=== PATIENT | male | born 1950 | race Caucasian/White ===

== ENCOUNTER 2021-11-10 14:38 | Inpatient (IN) ==
[2021-11-10] MEDS ORDERED: SODIUM CHLORIDE 0.9% 500 ML IV SCH (15:00)
[2021-11-10] MEDS ORDERED: SODIUM CHLORIDE 0.9% 250 ML IV PRN ×2 (15:00→21:54)
--- NOTE | 2021-11-10 15:07 | Emergency Department Note ---
History of Present Illness General Chief complaint: Weakness Stated complaint: REQUESTING TESTING, BLOOD TESTING Time Seen by Provider: 11/10/21 14:49 Source: patient History of Present Illness Provider complaint: Generalized weakness Onset (ago): week(s) Location: head Pain Consistency: + constant Quality: + other (Generalized weakness) Exacerbated By: + other (Activity) Associated symptoms: + nausea/vomiting, + shortness of breath and + weakness; no chest pain, no cough, no fever/chills or no headaches This is a 71-year-old male sent over from Dr. Sharpe's office for generalized weakness for the past 2 weeks. He states that he has had no energy for the past weeks. He gets short of breath when he performs any activity. He has not passed out but his weakness is worse when he gets up. He had blood work today at Dr. Sharpe's office which showed a hemoglobin of 7.8 down from 11.7 on October 29. His platelet count did come down to 50. He is currently receiving immunotherapy. His absolute neutrophil count came down to 1.92. His creatinine and bilirubin have also elevated slightly. He does state that he has been noticing tea colored urine. His thought his skin was yellow but he did not think so. He denies any fever, cough or cold symptoms, chest pain, abdominal pain, diarrhea or black or bloody stools. He does state that he has had nausea but no vomiting. He is urinating normally without hematuria. Home Medications Medication Instructions Recorded Confirmed Type empagliflozin 10 mg tablet 10 mg PO DAILY 11/10/21 11/10/21 History (Jardiance) finasteride 5 mg tablet 5 mg PO DAILY 11/10/21 11/10/21 History metformin 500 mg tablet 500 mg PO BID 11/10/21 11/10/21 History metoprolol succinate 50 mg 50 mg PO DAILY 11/10/21 11/10/21 History tablet,extended release 24 hr nivolumab 100 mg/10 mL intravenous 0 mg IV MONTHLY 11/10/21 11/10/21 History solution (Opdivo) rosuvastatin 5 mg tablet 5 mg PO DAILY 11/10/21 11/10/21 History sacubitril 97 mg-valsartan 103 mg 0.5 tab PO BID 11/10/21 11/10/21 History tablet (Entresto) spironolactone 25 mg tablet 25 mg PO DAILY 11/10/21 11/10/21 History Allergies Allergy/AdvReac Type Severity Reaction Status Date / Time No Known Allergies Allergy Verified 11/10/21 15:42 Past Med/Surg History Medical History DM type 2 (diabetes mellitus, type 2) Mantle cell lymphoma Melanoma Nonischemic cardiomyopathy Surgical History History of appendectomy History of resection of liver History of splenectomy S/P TURP Family History Brother Diabetes Father Diabetes Social History Smoking Status: Never smoker Hx Alcohol Use: No Preferred Language: Sinhala Feels Safe at Home: Yes Review of Systems See HPI for pertinent positives & negatives. and A total of 10 systems reviewed and were otherwise negative Physical Exam Vital Signs Vital Signs - 24 hr 11/10/21 14:40 11/10/21 14:49 11/10/21 15:45 Temperature 36.7 C Temperature Source Temporal Artery Scan Pulse Rate 87 Pulse Rate [Apical] Pulse Rhythm Pulse Rhythm [Apical] Pulse Strength Pulse Strength [Apical] Respiratory Rate 16 Respiratory Effort / Characteristics Respiratory Depth Respiratory Pattern Blood Pressure 90/52 L Blood Pressure [Left Arm] Blood Pressure Mean 64 Blood Pressure Mean [Left Arm] Blood Pressure Position Sitting Blood Pressure Position [Left Arm] Pulse Oximetry 98 Oxygen Delivery Method Room Air Room Air Sepsis Recent Fever Within 48 Hours No Sepsis New/Unexplained Change in Mental Status N/A Sepsis Action Taken by Nursing No Action Required 11/10/21 16:39 11/10/21 17:55 11/10/21 18:00 Temperature 36.9 C Temperature Source Oral Pulse Rate 70 Pulse Rate [Apical] 65 65 Pulse Rhythm Regular Pulse Rhythm [Apical] Regular Regular Pulse Strength Normal Pulse Strength [Apical] Normal Normal Respiratory Rate 18 20 18 Respiratory Effort / Characteristics Non-Labored Non-Labored Respiratory Depth Normal Normal Respiratory Pattern Regular Regular Blood Pressure 99/42 L Blood Pressure [Left Arm] 105/49 L Blood Pressure Mean 61 Blood Pressure Mean [Left Arm] 67 Blood Pressure Position Lying Blood Pressure Position [Left Arm] Lying Pulse Oximetry 99 98 99 Oxygen Delivery Method Room Air Room Air Sepsis Recent Fever Within 48 Hours Sepsis New/Unexplained Change in Mental Status Sepsis Action Taken by Nursing 11/10/21 18:12 11/10/21 18:27 11/10/21 18:55 Temperature 36.8 C 37.0 C Temperature Source Oral Oral Pulse Rate 67 65 64 Pulse Rate [Apical] Pulse Rhythm Regular Pulse Rhythm [Apical] Pulse Strength Normal Pulse Strength [Apical] Respiratory Rate 20 18 18 Respiratory Effort / Characteristics Respiratory Depth Respiratory Pattern Blood Pressure 97/56 L 89/51 L 91/49 L Blood Pressure [Left Arm] Blood Pressure Mean 69 63 63 Blood Pressure Mean [Left Arm] Blood Pressure Position Lying Lying Blood Pressure Position [Left Arm] Pulse Oximetry 95 99 99 Oxygen Delivery Method Sepsis Recent Fever Within 48 Hours Sepsis New/Unexplained Change in Mental Status Sepsis Action Taken by Nursing 11/10/21 18:56 11/10/21 18:57 Temperature 37.0 C Temperature Source Oral Pulse Rate 67 Pulse Rate [Apical] Pulse Rhythm Pulse Rhythm [Apical] Pulse Strength Pulse Strength [Apical] Respiratory Rate Respiratory Effort / Characteristics Respiratory Depth Respiratory Pattern Blood Pressure Blood Pressure [Left Arm] 91/49 L Blood Pressure Mean Blood Pressure Mean [Left Arm] 63 Blood Pressure Position Blood Pressure Position [Left Arm] Lying Pulse Oximetry 99 Oxygen Delivery Method Sepsis Recent Fever Within 48 Hours Sepsis New/Unexplained Change in Mental Status Sepsis Action Taken by Nursing Constitutional: Vital signs reviewed. Hypotensive. Eyes: Pupils are equal round reactive to light. Conjunctiva are noninjected. ENT: Pharynx is clear without erythema or exudate. Mucous membranes are moist. Neck supple without meningeal signs. Respiratory: Clear to auscultation bilaterally. Breath sounds are equal bilaterally. Cardiovascular: Regular rate and rhythm. No rubs or gallops. GI: Soft, nondistended and nontender. Bowel sounds are present. Musculoskeletal: No peripheral edema. No lower extremity tenderness. Integumentary: No cyanosis. or jaundice. Neurological: The patient is awake and alert. No focal deficits. Psychiatric: Normal affect. Not anxious appearing. Course Administered Medications Discontinued Medications Sodium Chloride (Nss) 500 mls @ 999 mls/hr IV .Q31M SHAKEEL Stop: 11/10/21 15:30 Last Infusion: 11/10/21 16:40 Dose: 0 mls/hr Documented by: [id number] Admin: 11/10/21 16:09 Dose: 999 mls/hr Documented by: [id number] Critical Care Time Critical Care Time: Yes Total Critical Care Time: 35 I have personally spent approximately 35 minutes of critical care time in the direct management of this patient. This includes bedside care, interpretation of diagnostic studies, and testing, discussion with consultants, patient, and family members, and other required patient management activities. These minutes are in excess of all separately billable procedures. Medical Decision Making Differential Diagnosis Symptomatic anemia, chemotherapeutic side effect, hyperbilirubinemia, hypovolemia, metabolic derangement Medical Records Attestation: I reviewed the patient's medical records. I did perform a limited focused review of portions of the patient's old chart on the electronic medical record. The patient has had no recent pertinent visits to this hospital. Home Medications Current Medication List: was personally reviewed by me Laboratory Data Attestation: I reviewed the patient's lab results. Result diagrams: 11/10/21 15:19 11/10/21 15:19 Lab Results 11/10/21 11/10/21 11/10/21 Range/Units 15:19 15:19 15:19 WBC 3.92 L (4.8-10.8) K/uL RBC 2.29 L (4.7-6.1) M/uL Hgb 7.7 L (14.0-18.0) g/dL Hct 23.0 L (42-52) % MCV 100.4 H (80-100) fL MCH 33.6 (25-34) pg MCHC 33.5 (32-36) g/dL RDW Std Deviation 59.3 H (36.4-46.3) fL RDW Coeff of Melvin 16.3 H (11.5-14.5) % Plt Count 57 L (130-400) K/uL MPV 10.5 H (7.4-10.4) fL Absolute Nucleated RBC 0.02 H (0-0) K/uL Nucleated RBC % (auto) 0.6 % Neutrophils % (Manual) 72.8 % Lymphocytes % (Manual) 19.4 % Monocytes % (Manual) 3.9 % Eosinophils % (Manual) 1.0 % Basophils % (Manual) 1.9 % Metamyelocytes % (Man) 1.0 % Neutrophils # (Manual) 2.85 (1.4-6.5) K/uL Total Absolute Neuts 2.85 (1.4-6.5) K/uL Lymphocytes # (Manual) 0.76 L (1.2-3.4) K/uL Total Abs Lymphocytes 0.76 L (1.2-3.4) K/uL Monocytes # (Manual) 0.15 (0.11-0.59) K/uL Eosinophils # (Manual) 0.04 (0-0.5) K/uL Basophils # (Manual) 0.07 (0-0.2) K/uL Metamyelocytes # (Man) 0.04 H (0-0) K/uL Macrocytosis Present Sodium 139 (136-145) mmol/L Potassium 4.4 (3.5-5.1) mmol/L Chloride 109 H (98-107) mmol/L Carbon Dioxide 20 L (21-32) mmol/L Anion Gap 10 (3-11) BUN 39 H (6-23) mg/dl Creatinine 1.20 (0.6-1.4) mg/dl Est Cr Clr Drug Dosing 61.1 ml/min Est GFR ( Amer) 69.6 ml/min Est GFR (Non-Af Amer) 60.1 ml/min BUN/Creatinine Ratio 32.5 H (10-20) Glucose 140 H (70-99(Fasting)) mg/dl Calcium 8.5 (8.5-10.1) mg/dl Total Bilirubin 1.8 H (0.2-1.0) mg/dl AST 41 H (13-39) U/L ALT 11 (7-52) U/L Alkaline Phosphatase 57 (34-104) U/L Troponin I High Sens 7.3 (0-20) pg/ml Total Protein 5.7 L (6.0-8.3) gm/dl Albumin 3.9 (3.4-5.0) gm/dl Globulin 1.8 L (2.5-4.0) gm/dl Albumin/Globulin Ratio 2.2 H (0.9-2) SARS-CoV-2, RNA, NAAT (NEGATIVE) Blood Type Blood Type Recheck Antibody Screen Crossmatch 11/10/21 11/10/21 11/10/21 Range/Units 15:40 15:52 16:21 WBC (4.8-10.8) K/uL RBC (4.7-6.1) M/uL Hgb (14.0-18.0) g/dL Hct (42-52) % MCV (80-100) fL MCH (25-34) pg MCHC (32-36) g/dL RDW Std Deviation (36.4-46.3) fL RDW Coeff of Melvin (11.5-14.5) % Plt Count (130-400) K/uL MPV (7.4-10.4) fL Absolute Nucleated RBC (0-0) K/uL Nucleated RBC % (auto) % Neutrophils % (Manual) % Lymphocytes % (Manual) % Monocytes % (Manual) % Eosinophils % (Manual) % Basophils % (Manual) % Metamyelocytes % (Man) % Neutrophils # (Manual) (1.4-6.5) K/uL Total Absolute Neuts (1.4-6.5) K/uL Lymphocytes # (Manual) (1.2-3.4) K/uL Total Abs Lymphocytes (1.2-3.4) K/uL Monocytes # (Manual) (0.11-0.59) K/uL Eosinophils # (Manual) (0-0.5) K/uL Basophils # (Manual) (0-0.2) K/uL Metamyelocytes # (Man) (0-0) K/uL Macrocytosis Sodium (136-145) mmol/L Potassium (3.5-5.1) mmol/L Chloride (98-107) mmol/L Carbon Dioxide (21-32) mmol/L Anion Gap (3-11) BUN (6-23) mg/dl Creatinine (0.6-1.4) mg/dl Est Cr Clr Drug Dosing ml/min Est GFR ( Amer) ml/min Est GFR (Non-Af Amer) ml/min BUN/Creatinine Ratio (10-20) Glucose (70-99(Fasting)) mg/dl Calcium (8.5-10.1) mg/dl Total Bilirubin (0.2-1.0) mg/dl AST (13-39) U/L ALT (7-52) U/L Alkaline Phosphatase (34-104) U/L Troponin I High Sens (0-20) pg/ml Total Protein (6.0-8.3) gm/dl Albumin (3.4-5.0) gm/dl Globulin (2.5-4.0) gm/dl Albumin/Globulin Ratio (0.9-2) SARS-CoV-2, RNA, NAAT NEGATIVE (NEGATIVE) Blood Type O Positive Blood Type Recheck O Positive Antibody Screen NEGATIVE Crossmatch See Detail Imaging Data Radiologist's Impression: Chest X-Ray 11/10/21 15:00 XR chest 1V portable HISTORY: 71 years-old Male weakness acute weakness COMPARISON: None TECHNIQUE: Portable AP view of the chest FINDINGS: The cardiomediastinal and hilar silhouettes are within normal limits. Surgical clip projects over the right lung apex. No pneumothorax, pleural effusion, airspace consolidation or overt pulmonary edema. Degenerative changes of the shoulders and spine. IMPRESSION: No acute process. ACT 112: Negative or not required by law. The above report was generated using voice recognition software. It may contain grammatical, syntax or spelling errors. Electronically signed by: Chandler Corrales M.D. 11/10/2021 4:00 PM ECG Data Attestation: I personally reviewed and interpreted this ECG as follows: Indication: + weakness Rate (beats per minute): 101 Rhythm: + sinus tachycardia ECG ST segments: no ST elevation ECG Findings: + Other (Low voltage QRS) Comparison ECG Date: no prior available MDM Narrative I did evaluate the patient as noted above. The patient is presenting with generalized weakness with hypotension and significant anemia. He is being treated for mantle cell lymphoma. IV access was established. I did treat him with normal saline IV. I did obtain informed consent for transfusion. I did place an order for transfusion of 2 units of packed RBCs irradiated and leukocyte depleted. I did place an order for continuous cardiac monitoring. The monitor showed Sinus tachycardia at a rate of 101 bpm. I did order and personally review the patient's 12-lead EKG as described above. He has no acute ischemic changes. I did order and personally reviewed the images of the patient's chest x-ray as described above. There is no evidence of pneumonia. I did order and review the patient's blood work as noted in the electronic medical record. CBC demonstrates pancytopenia with a hemoglobin of 7.7. CMP demonstr ates a total bili of 1.8 with an L AST of 41. High-sensitivity troponin is negative. Electrolytes show a CO2 of 20 and a chloride of 109. BUN and creatinine at 39 and 1.2. On reassessment his blood pressure is improved with these fluid bolus. He was started on his transfusion here in the emergency department. I did discuss the test results with him. I did discuss the case with the hospitalist and case assembler. Impression & Plan Acute hypotension, Mantle cell lymphoma, Symptomatic anemia, Elevated bilirubin, Pancytopenia Discharge Plan Visit Data Chief Complaint: Weakness Stated Complaint: REQUESTING TESTING, BLOOD TESTING ED Provider: Yasmani Blount Discharge Problem: Acute hypotension, Mantle cell lymphoma, Symptomatic anemia, Elevated bili bryan, Pancytopenia Patient Disposition: Being Evaluated by Hospitalist Forms Stand Alone Forms: My [facility] Prescriptions Prescriptions: No Action metformin 500 mg tablet 500 mg PO BID RF: 0 metoprolol succinate 50 mg tablet extended release 24 hr 50 mg PO DAILY RF: 0 spironolactone 25 mg tablet 25 mg PO DAILY RF: 0 finasteride 5 mg tablet 5 mg PO DAILY RF: 0 rosuvastatin 5 mg tablet 5 mg PO DAILY RF: 0 Opdivo 100 mg/10 mL Solution 0 mg IV MONTHLY RF: 0 Entresto 97-103 mg Tablet 0.5 tab PO BID RF: 0 Jardiance 10 mg tablet 10 mg PO DAILY RF: 0 Referrals Referrals: PCP,NO [Physician] -
--- NOTE | 2021-11-10 16:02 | XRay Report ---
XR chest 1V portable HISTORY: 71 years-old Male weakness acute weakness COMPARISON: None TECHNIQUE: Portable AP view of the chest FINDINGS: The cardiomediastinal and hilar silhouettes are within normal limits. Surgical clip projects over the right lung apex. No pneumothorax, pleural effusion, airspace consolidation or overt pulmonary edema. Degenerative changes of the shoulders and spine. IMPRESSION: No acute process. ACT 112: Negative or not required by law. The above report was generated using voice recognition software. It may contain grammatical, syntax o r spelling errors. Electronically signed by: Chandler Corrales M.D. 11/10/2021 4:00 PM
[2021-11-10 16:15] LABS: Hemoglobin 7.7 g/dL (14.0-18.0); Mean Corpuscular Hemoglobin 33.6 pg (25-34); Mean Corpuscular Hgb Conc 33.5 g/dL (32-36); Mean Corpuscular Volume 100.4 fL (80-100); Mean Platelet Volume 10.5 fL (7.4-10.4); Nucleated RBC # (auto) 0.02 K/uL (0-0); Nucleated RBC % (auto) 0.6 %; Platelet Count 57 K/uL (130-400); RDW Coefficient of Variation 16.3 % (11.5-14.5); RDW Standard Deviation 59.3 fL (36.4-46.3); Red Blood Count 2.29 M/uL (4.7-6.1); White Blood Count 3.92 K/uL (4.8-10.8)
[2021-11-10 16:18] LABS: ALC (manual) 0.76 K/uL (1.2-3.4); ANC (manual) 2.85 K/uL (1.4-6.5); Basophils # (manual) 0.07 K/uL (0-0.2); Basophils % (manual) 1.9 %; Eosinophils # (manual) 0.04 K/uL (0-0.5); Lymphocytes # (manual) 0.76 K/uL (1.2-3.4); Lymphocytes % (manual) 19.4 %; Macrocytosis Present; Metamyelocytes # (manual) 0.04 K/uL (0-0); Monocytes # (manual) 0.15 K/uL (0.11-0.59); Monocytes % (manual) 3.9 %; Neutrophils # (manual) 2.85 K/uL (1.4-6.5); Neutrophils % (manual) 72.8 %
[2021-11-10 16:22] LABS: Albumin Globulin Ratio 2.2 (0.9-2); Albumin Level 3.9 gm/dl (3.4-5.0); BUN Creatinine Ratio 32.5 (10-20); Bilirubin,Total 1.8 mg/dl (0.2-1.0); Calcium 8.5 mg/dl (8.5-10.1); Creatinine Clr Calc Pharmacy 61.1 ml/min; Est GFR (African American) 69.6 ml/min; Est GFR (Non-African American) 60.1 ml/min; Globulin 1.8 gm/dl (2.5-4.0); Potassium 4.4 mmol/L (3.5-5.1); Total Protein 5.7 gm/dl (6.0-8.3)
--- NOTE | 2021-11-10 20:09 | History & Physical Report ---
Date of Service November 10, 2021 Assessment & Plan (1) Symptomatic anemia: (2) Pancytopenia: (3) Melanoma: (4) Mantle cell lymphoma: Plan: Admit to [facility] Patient presenting by referral of oncology office for evaluation of fatigue, lightheadedness, anemia History of recurrent malignant melanoma and mantle cell lymphoma, on Opdivo every 4 weeks (last treatment 10/29) and acalabrutinib (has been on hold since 10/29) As an outpatient, Hgb has been trending down, 14.4 on 10/01 --> 11.7 on 10/29 --> 7.8 on 11/10. Platelets trending down as well, 93K --> 65K --> 50K Noted previously on allopurinol for tumor lysis syndrome prevention, this was recently discontinued by oncology CBC in ED shows pancytopenia-WBC 3.9K, Hgb 7.7, platelets of 57K, ANC 760. No fever reported. Borderline hypotension noted Transfuse 2 unit PRBC, follow CBC (5) Elevated bilirubin: Plan: T bili 1.8 No abdominal complaints reported Follow LFTs Outpatient follow-up (6) Nonischemic cardiomyopathy: Plan: Chemotherapy-induced EF 37% Due to borderline hypotension -- hold Entresto, metoprolol, spironolactone for now, resume as able On Jardiance for heart failure associated risk reduction Monitor volume status closely with PRBC transfusion, may need IV Lasix however hesitant to give at this time due to hypotension (7) DM type 2 (diabetes mellitus, type 2): Plan: Hgb A1c 6.1 05/2021 Hold metformin, utilize NovoLog per protocol while hospitalized (8) DVT prophylaxis: Plan: SCDs History of Present Illness Chief Complaint: Fatigue, lightheadedness, referred by oncologist Primary Care Provider: Ike Ash PA-C 71-year-old male with PMH recurrent malignant melanoma and mantle cell lymphoma s/p previous stem cell transplant, surgical resection, chemotherapy; chemotherapy induced nonischemic cardiomyopathy, DM type II, and other problems listed below who presents the ED for evaluation of lightheadedness, fatigue, and referred by oncologist for anemia. Patient is currently receiving Opdivo every 4 weeks for management of melanoma, previously on PO acalabrutinib (Calquence) for management of lymphoma. Last Opdivo treatment was on 10/29, and Calquence has been on hold since 10/29 as well due to pancytopenia. Patient was seen by cardiology for complaints of low blood pressure and orthostasis. Entresto was reduced by half at that time. Patient reports no improvement in his symptoms. Outpatient labs today showed Hgb 7.8 and platelets 50 K, down from Hgb 14.4 and platelets 93K 1 month ago. Patient denies any other recent illnesses, fevers, chills. No chest pain or shortness of breath. Denies bright red bleeding per rectum or dark tarry stools. No abdominal pain, nausea, vomiting, diarrhea. Denies urinary symptoms. In the ED, labs show Hgb 7.7, BP borderline low at times. Patient was given IVF and typed and crossed for 2 unit PRBC. Allergies Allergy/AdvReac Type Severity Reaction Status Date / Time No Known Allergies Allergy Verified 11/10/21 15:42 Home Medications Medication Instructions Recorded Confirmed Type empagliflozin 10 mg tablet 10 mg PO DAILY 11/10/21 11/10/21 History (Jardiance) finasteride 5 mg tablet 5 mg PO DAILY 11/10/21 11/10/21 History metformin 500 mg tablet 500 mg PO BID 11/10/21 11/10/21 History metoprolol succinate 50 mg 50 mg PO DAILY 11/10/21 11/10/21 History tablet,extended release 24 hr nivolumab 100 mg/10 mL intravenous 0 mg IV MONTHLY 11/10/21 11/10/21 History solution (Opdivo) rosuvastatin 5 mg tablet 5 mg PO DAILY 11/10/21 11/10/21 History sacubitril 97 mg-valsartan 103 mg 0.5 tab PO BID 11/10/21 11/10/21 History tablet (Entresto) spironolactone 25 mg tablet 25 mg PO DAILY 11/10/21 11/10/21 History Past Med/Surg History Medical History DM type 2 (diabetes mellitus, type 2) Mantle cell lymphoma Melanoma Nonischemic cardiomyopathy Surgical History History of appendectomy History of resection of liver History of splenectomy S/P TURP Family History Brother Diabetes Father Diabetes Social History Smoking Status: Never smoker Hx Alcohol Use: No Preferred Language: Uzbek Feels Safe at Home: Yes Review of Systems Review of Systems: ROS per HPI, all other systems reviewed and negative Physical Exam Constitutional: WD/WN, vitals as above Eyes: PERRL, conjunctivae normal, anicteric sclerae ENMT: external ear and nose normal, oropharynx normal Respiratory: normal respiratory effort, lungs clear to auscultation Cardiovascular: Rate/Rhythm: regular rate and regular rhythm Vessels: normal peripheral pulses Extremities: no edema Gastrointestinal (Abdomen): normal bowel sounds, soft, nontender, no hepatosplenomegaly Musculoskeletal: no cyanosis or clubbing, extremities motor strength 5/5 Skin: no rashes, warm and dry + pallor Neurologic: PERRL, EOMI, accommodation nl, no face palsy, no dysarthria Psychiatric: A+Ox3, euthymic affect Results & Data Results & Data ([facility]) Vital Signs (Past 12 Hours) Vital Signs Temp Pulse Pulse Resp BP BP Pulse Ox 11/10/21 18:57 37.0 C 67 99 11/10/21 18:56 91/49 L 11/10/21 18:55 37.0 C 64 18 91/49 L 99 11/10/21 18:27 65 18 89/51 L 99 11/10/21 18:12 36.8 C 67 20 97/56 L 95 11/10/21 18:00 65 18 99 11/10/21 17:55 36.9 C 70 20 99/42 L 98 11/10/21 16:39 65 18 105/49 L 99 11/10/21 14:40 36.7 C 87 16 90/52 L 98 Laboratory Results Short CBC 11/10/21 Range/Units 15:19 WBC 3.92 L (4.8-10.8) K/uL Hgb 7.7 L (14.0-18.0) g/dL Hct 23.0 L (42-52) % Plt Count 57 L (130-400) K/uL BMP 11/10/21 15:19 Sodium 139 Potassium 4.4 Chloride 109 H Carbon Dioxide 20 L BUN 39 H Creatinine 1.20 Glucose 140 H Calcium 8.5 Liver Function 11/10/21 Range/Units 15:19 Total Bilirubin 1.8 H (0.2-1.0) mg/dl AST 41 H (13-39) U/L ALT 11 (7-52) U/L Alkaline Phosphatase 57 (34-104) U/L Albumin 3.9 (3.4-5.0) gm/dl Diagnostic Findings Chest X-Ray 11/10/21 15:00 XR chest 1V portable HISTORY: 71 years-old Male weakness acute weakness COMPARISON: None TECHNIQUE: Portable AP view of the chest FINDINGS: The cardiomediastinal and hilar silhouettes are within normal limits. Surgical clip projects over the right lung apex. No pneumothorax, pleural effusion, airspace consolidation or overt pulmonary edema. Degenerative changes of the shoulders and spine. IMPRESSION: No acute process. ACT 112: Negative or not required by law. The above report was generated using voice recognition software. It may contain grammatical, syntax or spelling errors. Electronically signed by: Chandler Corrales M.D. 11/10/2021 4:00 PM Code Status & VTE Plan Code Status Patient is a DNR as per my discussion with him. VTE Prophylaxis Plan VTE Prophylaxis will be ordered: Yes Supervising Physician Co-Signing Physician Notes Patient seen and examined with Maria De Jesus DHILLON, chart reviewed, case discussed with her and agree with her documentation. In summary, this is a 71 year old male with melanoma and mantle cell lymphoma s/p stem cell transplant, chemo induced NICM, recurrence of malignancies and currently on Opdivo and po calquence last dose of both being 5/5 currently on hold due to pancytopenia presented to the ED today for symptomatic anemia with fatigue, dizziness. His Hb in ED 7.7, down from 14 about a month ago. Plts and WBC also down. His BP is soft and on lower side. His entresto was recently cut down by cardiology. During our encounter, he denied any symptoms. He was receiving PRBC, total of 2 U. Denies any bleeding issues. Will recheck CBC in am along with orthostatic vitals and PT eval. Will repeat echo. Will hold BP meds given low BP- resume as able. If reports SOB, will give 1 dose of iv lasix considering his NICM. Might need midodrine for pressor support if BP remains low or symptomatic. Rest as per the note above.
[2021-11-10] MEDS ORDERED: GLUCAGON FOR INJ 1 MG VIAL SQ PRN (20:33)
[2021-11-10] MEDS ORDERED: GLUCOSE 10 TABS/TUBE PO PRN (20:33)
[2021-11-10] MEDS ORDERED: CARBOHYDRATES FOR HYPOGLYCEMIA PO PRN (20:33)
[2021-11-10] MEDS ORDERED: DEXTROSE 50% 50 ML SYRINGE IV PRN (20:33)
[2021-11-10] MEDS ORDERED: GLUCOSE 40% GEL 15 GM TUBE PO PRN (20:33)
[2021-11-10] MEDS ORDERED: ACETAMINOPHEN 325 MG TAB PO PRN (20:33)
[2021-11-10] MEDS ORDERED: diphenhydrAMINE Capsule 25 MG CAP PO ONE (21:06)
[2021-11-10 21:13] LABS: Appearance Urine Cloudy (Clear); Bacteria Urine Automated Negative (Negative); Bilirubin Urine Negative (Negative); Blood Urine 2+ (Negative); Color Urine Dark Yellow; Epithelial Cell Urine Auto >30 /lpf (0-5); Glucose Urine UA 1+ (Negative); Ketones Urine Negative (Negative); Leukocyte Esterase Urine Negative (Negative); Nitrite Urine Negative (Negative); Protein Urine 2+ (Negative); RBC Urine Automated 0-4 /hpf (0-4); Specific Gravity Urine 1.021 (1.000-1.030); Urobilinogen Urine Negative (Negative)
[2021-11-10] MEDS: INSULIN ASPART PER UNIT SC SCH (21:25)
[2021-11-11 02:30] LABS: Hematocrit (blood only) 25.4 % (42-52); Hemoglobin 8.6 g/dL (14.0-18.0); Mean Corpuscular Hemoglobin 32.5 pg (25-34); Mean Corpuscular Hgb Conc 33.9 g/dL (32-36); Mean Corpuscular Volume 95.8 fL (80-100); Nucleated RBC # (auto) 0.02 K/uL (0-0); Nucleated RBC % (auto) 0.5 %; RDW Coefficient of Variation 18.3 % (11.5-14.5); RDW Standard Deviation 64.2 fL (36.4-46.3); Red Blood Count 2.65 M/uL (4.7-6.1)
[2021-11-11 02:44] LABS: Albumin Level 3.3 gm/dl (3.4-5.0); BUN Creatinine Ratio 34.6 (10-20); Bilirubin Direct 0.3 mg/dl (0-0.2); Bilirubin,Total 1.7 mg/dl (0.2-1.0); Calcium 8.1 mg/dl (8.5-10.1); Creatinine Clr Calc Pharmacy 68.5 ml/min
[2021-11-11 02:55] LABS: Platelet Count 55 K/uL (130-400); Platelet Estimate Decreased (Normal)
[2021-11-11] MEDS ORDERED: PERFLUTREN LIPID MICROSPHERE (DEFINITY) IV ONE (07:24)
[2021-11-11] MEDS: FINASTERIDE 5 MG TAB PO SCH (08:15)
[2021-11-11] MEDS: ROSUVASTATIN CALCIUM 5 MG TAB PO SCH (08:16)
[2021-11-11] MEDS: INSULIN ASPART PER UNIT SC SCH ×4 (08:16→20:27)
[2021-11-11 08:30] LABS: Estimated Average Glucose 111 mg/dl; Hemoglobin A1C 5.5 % (4.5-5.6)
[2021-11-11 14:01] LABS: Reticulocyte % 2.4 % (0.5-2.0)
--- NOTE | 2021-11-11 14:41 | Electrocardiogram Report ---
Test Reason : Blood Pressure : / mmHG Vent. Rate : 101 BPM Atrial Rate : 101 BPM P-R Int : 178 ms QRS Dur : 098 ms QT Int : 340 ms P-R-T Axes : 040 -28 065 degrees QTc Int : 440 ms Sinus tachycardia with marked sinus arrhythmia Low voltage QRS possible Inferior infarct , age undetermined Poor R wave progression, consider anterior FL vs. lead placement vs. LVH Abnormal ECG No previous ECGs available Confirmed by Chidi Donovan ([id number]) on 11/11/2021 2:41:06 PM Referred By: REFERRED SELF Confirmed By:Cole Donovan
--- NOTE | 2021-11-11 16:04 | Hospitalist Progress Note ---
Date of Service November 11, 2021 Assessment & Plan (1) Symptomatic anemia: Plan: (1) Symptomatic anemia: (2) Pancytopenia: (3) Melanoma: (4) Mantle cell lymphoma: Patient presenting 11/10 by referral of oncology office for evaluation of fatigue, lightheadedness, anemia History of recurrent malignant melanoma and mantle cell lymphoma, on Opdivo every 4 weeks (last treatment 10/29) and acalabrutinib (has been on hold since 10/29) As an outpatient, Hgb has been trending down, 14.4 on 10/01 --> 11.7 on 10/29 --> 7.8 on 11/10. Platelets trending down as well, 93K --> 65K --> 50K Noted previously on allopurinol for tumor lysis syndrome prevention, this was recently discontinued by oncology. Admitting CBC with pancytopenia with hemoglobin of 7.7. Status post 2 unit PRBC transfusion 11/10. Outpatient LDH on 11/10 was 1276, 11/11 LDH 1011 and uric acid 6.7 11/11 hemoglobin 8.6, blood smear [on sample before transfusion], reticulocyte, Keeley test and haptoglobin sent. 11/11 discussed with oncology over the phone, appreciate recommendation. Follow-up H&H at 10 PM today and daily. Transfuse for hemoglobin less than 7 or symptomatic anemia. CBC in 5 days upon discharge. (5) Elevated bilirubin: Plan: T bili 1.8 No abdominal complaints reported Follow LFTs, minimally trending down. Outpatient follow-up (6) Nonischemic cardiomyopathy: Plan: Chemotherapy-induced EF 37% Resume entresto and metoprolol; gradually resume spironolactone d/t concern of borderline hypotension Due to borderline hypotension -- hold Entresto, metoprolol, spironolactone for now, resume as able Ortho vitals negative. On Jardiance for heart failure associated risk reduction (7) DM type 2 (diabetes mellitus, type 2): Plan: Hgb A1c 6.1 05/2021. 5.5 this admission. Hold metformin, utilize NovoLog per protocol while hospitalized (8) DVT prophylaxis: Plan: SCDs #. Disposition: If hemoglobin stays stable, likely DC tomorrow after discussion with Dr. Sharpe. Admission and Anticipated Discharge Date Admission Date: November 10, 2021 Subjective Patient seen and examined at bedside as a follow-up of Mantel Cell lymphoma and symptomatic anemia [concern for hemolysis]. Patient was lying in bed, on room air, NAD, no new acute events overnight. Patient reports feeling better and feeling less weak today, patient reports moving around okay. Patient denies any headache/dizziness/chest pain/palpitation/belly pain/blood in the stool or black in stool/other review of symptoms. Patient reports eating okay. Physical Exam Physical Exam: GENERAL: Alert and oriented x3. NAD, on RA. HEENT: + pallor, no icterus. Pupils equal, round and reactive to light. Oral mucosa moist. NECK: No JVD, no neck masses. HEART: S1 and S2 heard. Regular rate and rhythm. No murmur, no gallop. Healed surgical scar on the right chest, lump at the site of prior operation [chronic and stable per patient] RESPIRATORY SYSTEM: Normal AP diameter. No accessory muscle use. No wheezing, no crackles. ABDOMEN: Soft, bowel sounds present, nontender, no distention. CENTRAL NERVOUS SYSTEM: No facial droop. Speech is clear. Obeys simple commands. Moves extremities. EXTREMITIES: No edema, no erythema seen. Results & Data Results & Data ([facility]) Vital Signs (Past 12 Hours) Vital Signs Temp Pulse Resp BP Pulse Ox 11/11/21 15:06 36.8 C 82 18 113/67 100 11/11/21 11:04 36.9 C 94 H 92/54 L 98 11/11/21 07:52 37 C 73 18 113/65 98
[2021-11-11] MEDS: VALSARTAN/SACUBITRIL 103/97MG TAB PO SCH (20:28)
[2021-11-11 23:00] LABS: Hematocrit (blood only) 24.2 % (42-52); Hemoglobin 8.3 g/dL (14.0-18.0)
[2021-11-12 08:26] LABS: Hematocrit (blood only) 24.6 % (42-52); Hemoglobin 8.3 g/dL (14.0-18.0); Mean Corpuscular Hemoglobin 32.3 pg (25-34); Mean Corpuscular Hgb Conc 33.7 g/dL (32-36); Mean Corpuscular Volume 95.7 fL (80-100); RDW Coefficient of Variation 18.9 % (11.5-14.5); RDW Standard Deviation 65.5 fL (36.4-46.3); Red Blood Count 2.57 M/uL (4.7-6.1); White Blood Count 3.91 K/uL (4.8-10.8)
[2021-11-12] MEDS: INSULIN ASPART PER UNIT SC SCH ×2 (08:30→12:24)
[2021-11-12] MEDS: VALSARTAN/SACUBITRIL 103/97MG TAB PO SCH (08:31)
[2021-11-12] MEDS: ROSUVASTATIN CALCIUM 5 MG TAB PO SCH (08:31)
[2021-11-12] MEDS: FINASTERIDE 5 MG TAB PO SCH (08:31)
[2021-11-12 08:41] LABS: Mean Platelet Volume 10.3 fL (7.4-10.4); Platelet Count 50 K/uL (130-400)
[2021-11-12 08:55] LABS: Calcium 8.4 mg/dl (8.5-10.1); Creatinine Clr Calc Pharmacy 78.8 ml/min; Est GFR (African American) 94.7 ml/min; Est GFR (Non-African American) 81.7 ml/min; Potassium 4.1 mmol/L (3.5-5.1)
[2021-11-12] MEDS ORDERED: METOPROLOL SUCC 50MG EXT REL TAB PO SCH (09:00)
[2021-11-12 09:02] LABS: Albumin Globulin Ratio 2.1 (0.9-2); Albumin Level 3.5 gm/dl (3.4-5.0); Globulin 1.7 gm/dl (2.5-4.0); Magnesium 1.4 mg/dl (1.7-2.4); Phosphorus 3.5 mg/dl (2.5-4.9); Total Protein 5.2 gm/dl (6.0-8.3)
[2021-11-12 09:21] LABS: Folate (Folic Acid) 12.23 ng/ml (>5.38)
[2021-11-12 09:30] LABS: Reticulocytes # 0.06 10^6/uL (0.02-0.10)
[2021-11-12] MEDS: MAGNESIUM SULFATE / D5W 1 GM/100 ML BAG IV SCH ×3 (09:36→13:59)
[2021-11-12 11:18] LABS: Ferritin 1483.4 ng/ml (8-388)
[2021-11-12] MEDS ORDERED: FOLIC ACID 1 MG TAB PO SCH (12:45)
--- NOTE | 2021-11-12 15:19 | Discharge Summary ---
Date of Service November 12, 2021 Admission HPI Per Admitting Provider 71-year-old male with PMH recurrent malignant melanoma and mantle cell lymphoma s/p previous stem cell transplant, surgical resection, chemotherapy; chemotherapy induced nonischemic cardiomyopathy, DM type II, and other problems listed below who presents the ED for evaluation of lightheadedness, fatigue, and referred by oncologist for anemia. Patient is currently receiving Opdivo every 4 weeks for management of melanoma, previously on PO acalabrutinib (Calquence) for management of lymphoma. Last Opdivo treatment was on 10/29, and Calquence has been on hold since 10/29 as well due to pancytopenia. Patient was seen by cardiology for complaints of low blood pressure and orthostasis. Entresto was reduced by half at that time. Patient reports no improvement in his symptoms. Outpatient labs today showed Hgb 7.8 and platelets 50 K, down from Hgb 14.4 and platelets 93K 1 month ago. Patient denies any other recent illnesses, fevers, chills. No chest pain or shortness of breath. Denies bright red bleeding per r ectum or dark tarry stools. No abdominal pain, nausea, vomiting, diarrhea. Denies urinary symptoms. In the ED, labs show Hgb 7.7, BP borderline low at times. Patient was given IVF and typed and crossed for 2 unit PRBC. Admission Exam Per Admitting Provider Constitutional: WD/WN, vitals as above Eyes: PERRL, conjunctivae normal, anicteric sclerae ENMT: external ear and nose normal, oropharynx normal Respiratory: normal respiratory effort, lungs clear to auscultation Cardiovascular: Rate/Rhythm: regular rate and regular rhythm Vessels: normal peripheral pulses Extremities: no edema Gastrointestinal (Abdomen): normal bowel sounds, soft, nontender, no hepatosplenomegaly Musculoskeletal: no cyanosis or clubbing, extremities motor strength 5/5 Skin: no rashes, warm and dry + pallor Neurologic: PERRL, EOMI, accommodation nl, no face palsy, no dysarthria Psychiatric: A+Ox3, euthymic affect Principal Diagnosis Symptomatic anemia/complement mediated hemolysis Active diagnosis of mantle cell lymphoma Likely chemotherapy-induced pancytopenia Discharge Exam GENERAL: Alert and oriented x3. NAD, on RA. HEENT: + pallor, no icterus. Pupils equal, round and reactive to light. Oral mucosa moist. NECK: No JVD, no neck masses. HEART: S1 and S2 heard. Regular rate and rhythm. No murmur, no gallop. Healed surgical scar on the right chest, lump at the site of prior operation [chronic and stable per patient] RESPIRATORY SYSTEM: Normal AP diameter. No accessory muscle use. No wheezing, no crackles. ABDOMEN: Soft, bowel sounds present, nontender, no distention. CENTRAL NERVOUS SYSTEM: No facial droop. Speech is clear. Obeys simple commands. Moves extremities. EXTREMITIES: No edema, no erythema seen. Discharge Data Allergies Allergy/AdvReac Type Severity Reaction Status Date / Time No Known Allergies Allergy Verified 11/10/21 15:42 Hospital Course (1) Symptomatic anemia: (1) Symptomatic anemia: (2) likely chemotherapy-induced pancytopenia: (3) Melanoma: (4) Mantle cell lymphoma: Patient presenting 11/10 by referral of oncology office for evaluation of fatigue, lightheadedness, anemia History of recurrent malignant melanoma and mantle cell lymphoma, on Opdivo every 4 weeks (last treatment 10/29) and acalabrutinib (has been on hold since 10/29) As an outpatient, Hgb has been trending down, 14.4 on 10/01 --> 11.7 on 10/29 --> 7.8 on 11/10. Platelets trending down as well, 93K --> 65K --> 50K Concern for likely complement mediated hemolysis. Noted previously on allopurinol for tumor lysis syndrome prevention, this was recently discontinued by oncology. Admitting CBC with pancytopenia with hemoglobin of 7.7. Status post 2 unit PRBC transfusion 11/10. Outpatient LDH on 11/10 was 1276, 11/11 LDH 1011 and uric acid 6.7 11/11 hemoglobin 8.6, and 11/12 hemoglobin 8.3. Peripheral blood smear suggestive of nonspecific pancytopenia. Reticulocyte's count minimally elevated, haptoglobin decreased. Direct Keeley test positive with complement weakly positive. Cold agglutinin test sent. 11/11 discussed with oncology over the phone, appreciate recommendation. 11/12 discussed with oncology again, can discharge with follow-up with oncology tomorrow and CBC tomorrow. Patient made aware. Folic acid started 11/12, hold medications for lymphoma until evaluated by oncology. (5) Elevated bilirubin: Plan: T bili 1.8 No abdominal complaints reported Follow LFTs, minimally trending down. Outpatient follow-up with PCP, expect to improve with improvement in hemolysis. (6) Nonischemic cardiomyopathy: Plan: Chemotherapy-induced EF 37% Resume entresto and metoprolol; gradually resume spironolactone d/t concern of borderline hypotension Due to borderline hypotension -- hold Entresto, metoprolol, spironolactone for now, resume as able Ortho vitals negative. On Jardiance for heart failure associated risk reduction (7) DM type 2 (diabetes mellitus, type 2): Plan: Hgb A1c 6.1 05/2021. 5.5 this admission. Hold metformin, utilize NovoLog per protocol while hospitalized Patient is being discharged home with following instruction at the point of discharge: Follow-up with your primary care physician within a week time. As discussed at the bedside, get your blood work CBC done tomorrow and follow-up with your cancer doctor tomorrow. As per discussion with your cancer doctor, your medicines for lymphoma are to be held until evaluated by oncology as an outpatient. You have been started on folic acid supplement daily. Since your blood pressure had been on the lower side while in hospital, your spironolactone dose has been held upon discharge. Follow-up with your primary care physician in a week time for further evaluation and possible resuming of this medication. Get your blood work CMP and magnesium level done in a week time. You will be discharged on magnesium supplement. Take medications as prescribed. Total Time Total Time Spent Total Time Spent (In Minutes): 45 Discharge Plan Discharge Items Patient Disposition: Home - Self-Care Reason For Visit: ANEMIA Discharge Diagnosis: Symptomatic anemia/complement mediated hemolysis Active diagnosis of mantle cell lymphoma Likely chemotherapy-induced pancytopenia Activity: Resume your previous activity Non-emergency contact: Primary Care Provider Call non-emergency contact if: you have any medication questions, your symptoms worsen and your temperature is above 101 Follow-up/Referrals: Ike Ash PA-C [Primary Care Provider] - Diet: Carb Count or DM1 and Low Sodium (2gm) Addtl Attending Provider Instructions: Follow-up with your primary care physician within a week time. As discussed at the bedside, get your blood work CBC done tomorrow and follow-up with your cancer doctor tomorrow. As per discussion with your cancer doctor, your medicines for lymphoma are to be held until evaluated by oncology as an outpatient. You have been started on folic acid supplement daily. Since your blood pressure had been on the lower side while in hospital, your spironolactone dose has been held upon discharge. Follow-up with your primary care physician in a week time for further evaluation and possible resuming of this medication. Get your blood work CMP and magnesium level done in a week time. You will be discharged on magnesium supplement. Take medications as prescribed. Pending Studies at Discharge: No Stand-Alone Forms: [facility] [place], Smoking Cessation Medications and DC Order Prescriptions: New folic acid 1 mg Tablet 1 mg PO QAM Qty: 30 RF: 0 magnesium oxide 200 mg magnesium tablet 200 mg PO DAILY Qty: 14 RF: 0 Continued metformin 500 mg tablet 500 mg PO BID RF: 0 metoprolol succinate 50 mg tablet extended release 24 hr 50 mg PO DAILY RF: 0 finasteride 5 mg tablet 5 mg PO DAILY RF: 0 rosuvastatin 5 mg tablet 5 mg PO DAILY RF: 0 Entresto 97-103 mg Tablet 0.5 tab PO BID RF: 0 Jardiance 10 mg tablet 10 mg PO DAILY RF: 0 Discontinued spironolactone 25 mg tablet 25 mg PO DAILY RF: 0 Opdivo 100 mg/10 mL Solution 0 mg IV MONTHLY RF: 0 Discharge Orders: Discharge Order (Routine); Ordered 11/12/21 Ordered By: Dennis Velásquez Admission Data Admit Date/Time: 11/10/21 17:56 Attending Provider: Dennis Velásquez Admit Provider: Kevin Young Primary Care Provider: Ike Ash
== END 2021-11-12 16:19 | disposition home or self-care (01) | DRG 809 ==
LOC: ED 14:38 → SUATTDRO 17:56 → 2W 17:56